=== PATIENT | male | born 1975 | race Caucasian/White ===

== ENCOUNTER 2020-10-10 00:14 | Emergency (ER) | payer OTHER ==
[~2020-10-10] VITALS: Ht 167.6 cm; Wt 83.9 kg
[2020-10-10 00:19] VITALS: BP 141/105
--- NOTE | 2020-10-10 01:40 | NUR ---
d/c back to [place] [employer] officer Epi Custody # [id number] with VSS. no rx given.
== END 2020-10-10 01:41 ==
LOC: MED 00:14
DX: F10.129 Alcohol abuse with intoxication, unspecified (principal); Z02.89 Encounter for other administrative examinations; V89.2XXA Person injured in unspecified motor-vehicle accident, traffic, initial encounter; Y93.89 Activity, other specified; Y92.89 Other specified places as the place of occurrence of the external cause; Y99.8 Other external cause status
CPT/HCPCS: 99283

== ENCOUNTER 2021-06-08 15:01 | Emergency (ER) | payer OTHER ==
[~2021-06-08] VITALS: Ht 177.8 cm; Wt 76.9 kg
[2021-06-08 15:11] VITALS: BP 136/95
--- NOTE | 2021-06-08 15:15 | NUR ---
PT TAKEN TO X RAY.
--- NOTE | 2021-06-08 16:13 | NUR ---
TESSY Ewing called pt to come back for re-eval for a fx finger/lac
--- NOTE | 2021-06-08 17:23 | NUR ---
PATIENT AMBULATED BACK TO BED 6 AT THIS TIME.
[2021-06-08] MEDS ORDERED: HYDROcodone/APAP 5/325 MG 1 TAB TAB PO ONE (17:45)
[2021-06-08] MEDS ORDERED: IBUPROFEN 600 MG TAB PO ONE (17:45)
[2021-06-08] MEDS ORDERED: cephALEXin 500 MG CAP PO ONE (17:45)
[2021-06-08] MEDS ORDERED: BACITRACIN OINT 500 UNITS/GM PKT TP ONE ×2 (17:54→17:55)
[2021-06-08] MEDS ORDERED: IBUP-2213 PO (18:10)
[2021-06-08] MEDS ORDERED: CEPH-588 PO (18:10)
[2021-06-08] MEDS ORDERED: ACET-8386 PO (18:10)
[2021-06-08] MEDS ORDERED: BACI1PAC6 TP (18:10)
--- NOTE | 2021-06-08 18:40 | NUR ---
Patient discharged with v/s stable. Written and verbal after care instructions given. Patient alert, oriented and verbalized understanding of instructions. Carried with steady gait. All questions addressed prior to discharge. ID band removed. Patient advised to follow up with PMD. Rx of IBUPROFEN, KEFLEX, BACITRACIN AND HYDROCODONE/ACETAMINOPHEN given. Opportunity to ask questions provided and answered. WORK NOTE HANDED TO PATIENT.
--- NOTE | 2021-06-08 18:41 | NUR ---
Chart checked and completed. The patient's care was reviewed and supervised by Antionette Rowell RN.
== END 2021-06-08 18:40 | disposition home or self-care (01) ==
LOC: MED 15:01
DX: S62.656A Nondisplaced fracture of middle phalanx of right little finger, initial encounter for closed fracture (principal); Z79.2 Long term (current) use of antibiotics; Z79.891 Long term (current) use of opiate analgesic; Z79.1 Long term (current) use of non-steroidal anti-inflammatories (NSAID); W20.8XXA Other cause of strike by thrown, projected or falling object, initial encounter; Y93.89 Activity, other specified; Y92.009 Unspecified place in unspecified non-institutional (private) residence as the place of occurrence of the external cause; Y99.8 Other external cause status
CPT/HCPCS: 73140; 99284

== ENCOUNTER 2021-06-12 22:05 | Emergency (ER) | payer OTHER ==
[~2021-06-12] VITALS: Ht 177.8 cm; Wt 76.7 kg
[~2021-06-12 22:05] MED LIST: ACET-8386 PO; BACI1PAC6 TP; CEPH-588 PO; IBUP-2213 PO
[2021-06-12 22:20] VITALS: BP 124/64
--- NOTE | 2021-06-12 23:01 | NUR ---
PATIENT LEFT WITHOUT BEING SEEN BY DR. Contreras. NO FURTHER CARE PROVIDED FOR PATIENT.
== END 2021-06-12 23:01 | disposition left against medical advice (07) ==
LOC: MED 22:05
DX: S62.606D Fracture of unspecified phalanx of right little finger, subsequent encounter for fracture with routine healing (principal); Z53.21 Procedure and treatment not carried out due to patient leaving prior to being seen by health care provider; X58.XXXD Exposure to other specified factors, subsequent encounter

== ENCOUNTER 2021-08-18 08:05 | Day surgery (SDC) | payer OTHER ==
[~2021-08-18] VITALS: Ht 180.3 cm; Wt 79.4 kg
[2021-08-18] MEDS ORDERED: diphenhydrAMINE 50 MG/ML VIAL ONE (09:19)
[2021-08-18] MEDS ORDERED: LIDOCAINE 2% 100 MG/5 ML UJET TP ONE (09:19)
[2021-08-18] MEDS ORDERED: fentaNYL citrate 0.05 MG/ML VIAL ONE (09:19)
[2021-08-18] MEDS ORDERED: MIDAZOLAM 5 MG/5 ML VIAL ONE (09:19)
[2021-08-18] MEDS ORDERED: fentaNYL citrate 0.05 MG/ML VIAL IVP ONE (13:20)
[2021-08-18] MEDS ORDERED: MIDAZOLAM 5 MG/5 ML VIAL IV ONE (13:20)
[2021-08-18] MEDS ORDERED: diphenhydrAMINE 50 MG/ML VIAL IVP ONE (13:20)
== END 2021-08-18 11:00 | disposition home or self-care (01) ==
LOC: MDS 08:05 → MMU 08:08 → MDS 11:00
PROVIDERS: ATTEND Internal Medicine Gastroenterology
DX: K62.5 Hemorrhage of anus and rectum (principal); K63.5 Polyp of colon; K64.8 Other hemorrhoids; K59.00 Constipation, unspecified; I10 Essential (primary) hypertension; F17.210 Nicotine dependence, cigarettes, uncomplicated; Z79.899 Other long term (current) drug therapy
CPT/HCPCS: 45385; 87426; J1200; J2250; J3010

== ENCOUNTER 2021-10-26 07:05 | Day surgery (SDC) | payer OTHER ==
[2021-10-26] MEDS ORDERED: BUPIVACAINE-MPF/EPI 0.5% 30 ML VIAL INJ ONE (07:59)
[2021-10-26] MEDS ORDERED: LIDOCAINE MPF 1% 20 ML ONE (08:01)
== END 2021-10-26 09:46 | disposition home or self-care (01) ==
LOC: MOR 07:05 → MMU 07:05 → MOR 09:46
PROVIDERS: ATTEND Surgery
DX: K64.8 Other hemorrhoids (principal); I10 Essential (primary) hypertension; Z20.822 Contact with and (suspected) exposure to COVID-19; Z53.8 Procedure and treatment not carried out for other reasons
CPT/HCPCS: 71045; 87426; 93005; J2001; J3490

== ENCOUNTER 2021-10-26 10:05 | Emergency (ER) | payer OTHER ==
[~2021-10-26] VITALS: Ht 175.3 cm; Wt 83.2 kg
[2021-10-26 10:24] VITALS: BP 127/81
--- NOTE | 2021-10-26 13:27 | NUR ---
Mecca lemus in [facility] - 10/26/21 at 1331 by [facility] CALLED X 1. NO SHOW.
--- NOTE | 2021-10-26 13:32 | NUR ---
PT REFUSED ALL BLOOD WORK
--- NOTE | 2021-10-26 13:32 | NUR ---
PT REFUSED BLOOD DRAW
--- NOTE | 2021-10-26 13:50 | NUR ---
PT REQUESTING TO SPEAK WITH HOSPITAL MANAGAMENT, HALF [employer]LE [employer]TER CONNIE MADE AWARE
[2021-10-26] MEDS ORDERED: FAMOTIDINE 20 MG TAB PO ONE (14:50)
[2021-10-26] MEDS ORDERED: ACETAMINOPHEN 325 MG TAB PO ONE (14:55)
--- NOTE | 2021-10-26 14:57 | NUR ---
PT AMBULATED TO ER BED 7
--- NOTE | 2021-10-26 15:13 | NUR ---
US AT BEDSIDE
--- NOTE | 2021-10-26 16:56 | NUR ---
pt swabbed for covid(laith). handed to chemical laboratory assistant
--- NOTE | 2021-10-26 17:00 | NUR ---
PATIENT ELOPED FROM FACILITY. DISCHARGE INSTRUCTIONS NOT GIVEN TO PATIENT. DR. STEPHENS NOTIFIED.
== END 2021-10-26 17:00 | disposition left against medical advice (07) ==
LOC: MED 10:05
DX: R10.10 Upper abdominal pain, unspecified (principal); R11.0 Nausea; R42 Dizziness and giddiness; I10 Essential (primary) hypertension; F17.210 Nicotine dependence, cigarettes, uncomplicated; Z98.890 Other specified postprocedural states; Z71.6 Tobacco abuse counseling
CPT/HCPCS: 76705; 81002; 93005; 99284; Q0092; 81025